=== PATIENT | male | born 1995 | race Caucasian/White ===

== ENCOUNTER 2018-11-02 04:43 | Emergency (ER) | payer OTHER ==
[~2018-11-02] VITALS: Ht 175.3 cm; Wt 82.7 kg
--- NOTE | 2018-11-02 07:51 | REP ---
PA and lateral chest: There are no comparisons. The lung varma are clear. The cardiac size is normal. The walt, mediastinum, and skeletal structures are unremarkable. Impression: Negative PA and lateral chest. Electronically Signed by Giovanni Acevedo MD 11/02/2018 07:42 A
[2018-11-02] MEDS ORDERED: ALBUTEROL SULFATE 2.5 MG/0.5 ML INH NEB SOLN NEB ONE ×2 (08:00→08:45)
[2018-11-02] MEDS ORDERED: predniSONE 20 MG TAB PO ONE (08:45)
[2018-11-02] MEDS ORDERED: PRED20TA PO (08:48)
[2018-11-02] MEDS ORDERED: PROAAER10 INH (08:49)
[2018-11-02] MEDS ORDERED: BENZONATATE 100 MG CAP PO ONE (09:00)
[2018-11-02] MEDS ORDERED: TESS100C PO (09:55)
[2018-11-02 09:58] VITALS: BP 133/95
== END 2018-11-02 10:19 | disposition home or self-care (01) ==
LOC: M ED 04:43
DX: J06.9 Acute upper respiratory infection, unspecified (principal); F17.210 Nicotine dependence, cigarettes, uncomplicated